=== PATIENT | female | born 1980 | race African-American/Black ===

== ENCOUNTER 2021-08-30 08:11 | Emergency (ER) | payer OTHER ==
[2021-08-30] MEDS ORDERED: dexAMETHasone 10 MG/ML VIAL ONE (08:56)
[2021-08-30] MEDS ORDERED: KETOROLAC 30 MG/ML INJ ONE (08:57)
--- NOTE | 2021-08-30 09:18 | EDPHYS ---
Physician Documentation [facility] Name: Mahsa Montgomery Age: 41 yrs Sex: Female : 1980 Arrival Date: 08/30/2021 Time: 08:15 Bed Waiting Private MD: ED Physician Guy Montoya HPI: 08/30 09:01 This 41 yrs old Black Female presents to ER via Ambulatory with complaints of Ear Pain, jmm Neck Pain, >24Hrs Old, Toothache. 09:01 The patient presents with pain. Onset: The symptoms/episode began/occurred gradually. jmm Modifying factors: The symptoms are alleviated by nothing, the symptoms are aggravated by nothing. Associated signs and symptoms: Pertinent negatives: fever. PRODUCTION EDITOR: 08:29 LMP 07/31/2021 [facility] Historical: - Allergies: 08:29 Tramadol HCl; [facility] 08:29 Daypro; [facility] - Home Meds: 08:29 None [Active]; [facility] - PMHx: 08:29 None; [facility] - PSHx: 08:29 section; Tonsillectomy; Adenoid excision; [facility] - Immunization history:: Client reports having NOT received the Covid vaccine. Flu vaccine is not up to date. - Social history:: Smoking status: Patient denies any tobacco usage or history of. ROS: 09:15 Constitutional: Negative for fever, chills, and weight loss, Cardiovascular: Negative jmm for chest pain, palpitations, and edema, Respiratory: Negative for shortness of breath, cough, wheezing, and pleuritic chest pain. 09:15 ENT: Positive for sore throat. 09:15 All other systems are negative. Exam: 09:15 Constitutional: This is a well developed, well nourished patient who is awake, alert, jmm and in no acute distress. Head/Face: atraumatic. Eyes: EOMI, no conjunctival erythema appreciated 09:15 Neck: Trachea midline, Supple Chest/axilla: Normal chest wall appearance and motion. Cardiovascular: Regular rate and rhythm. No edema appreciated Respiratory: Normal respirations, no respiratory distress appreciated Abdomen/GI: Non distended Back: Normal ROM 09:15 Skin: General appearance color normal MS/ Extremity: Moves all extremities, no obvious deformities appreciated, no edema noted to the lower extremities Neuro: Awake and alert Psych: Behavior is normal, Mood is normal, Patient is cooperative and pleasant 09:15 ENT: Posterior pharynx: erythema, that is mild. 09:15 ENT: TM's: are normal. Vital Signs: 08:22 BP 156 / 80; Pulse 62; Resp 18; Temp 98.1; Pulse Ox 100% ; Weight 127.01 kg; Height 5 [facility] ft. 7 in. (170.18 cm); Pain 8/10; 10:26 BP 140 / 78; Pulse 66; Resp 17; Temp 98.6; Pulse Ox 100% ; Pain 4/10; jh6 08:22 Body Mass Index 43.85 (127.01 kg, 170.18 cm) [facility] MDM: 09:[address] [facility] 09:17 Data reviewed: vital signs, nurses notes. Counseling: I had a detailed discussion with barbra the patient and/or guardian regarding: the historical points, exam findings, and any diagnostic results supporting the discharge/admit diagnosis, the need for outpatient follow up, to return to the emergency department if symptoms worsen or persist or if there are any questions or concerns that arise at home. ED course: Patint advised to follow up with pcp and otherwise given strict return precautions. patient understood and agrees with the plan of care. . 08/30 08:52 Order name: Strep; Complete Time: 09:18 [facility] 08/30 09:20 Order name: Throat Culture EDMS Administered Medications: 08:55 Drug: Decadron (dexamethasone) 10 mg Route: IM; Site: right deltoid; [facility] 10:25 Follow up: Response: No adverse reaction [facility] 08:55 Drug: Ketorolac 30 mg Route: IM; Site: left deltoid; [facility] 10:25 Follow up: Response: No adverse reaction [facility] Disposition: 08/31 09:20 Co-signature as Attending Physician, Guy LINDQUIST was immediately available on-site ms3 in the Emergency Department for consultation in the care of the patient.. Disposition Summary: 08/30/21 09:17 Discharge Ordered Location: Home [facility] Condition: Stable [facility] Diagnosis - Acute pharyngitis, unspecified jmm Followup: [facility] - With: Private Physician - When: 2 - 3 days - Reason: Recheck today's complaints, Continuance of care, Re-evaluation by your physician Discharge Instructions: - Discharge Summary Sheet [facility] - Pharyngitis [facility] Forms: - Medication Reconciliation Form stacy - Thank You Letter barbra - Antibiotic Education stacy - Prescription Opioid Use stacy - Work release form [id number] Prescriptions: - Clindamycin HCl 300 mg Oral Capsule - take 1 capsule by ORAL route every 6 hours for 10 days; 40 capsule; Refills: 0, [facility] Product Selection Permitted - orphenadrine citrate 100 mg Oral Tablet Sustained Release - take 1 tablet by ORAL route 2 times per day As needed; 20 tablet; Refills: 0, [facility] Product Selection Permitted Signatures: Dispatcher [employer] EDMS Reji Hernández PA PA jmm Sims, Marcus, DO DO ms3 Bing Mendoza RN RN jh6
--- NOTE | 2021-08-30 09:18 | ER ---
Nurse's Notes [facility] Name: Mahsa Montgomery Age: 41 yrs Sex: Female : 1980 Arrival Date: 08/30/2021 Time: 08:15 Bed Waiting Private MD: Diagnosis: Acute pharyngitis, unspecified Presentation: 08/30 08:22 Chief complaint: Patient states: Pt reports left ear pain, jaw pain, and left anterior 6 neck/throat pain. Pt states ear and jaw pain have resolved but left neck remains unchanged. Reports difficulty turning head from [id number]. Denies cough/fever. Coronavirus screen: Vaccine status: Patient reports being unvaccinated. Client denies travel out of the [place] in the last 14 days. Ebola Screen: Patient negative for fever greater than or equal to 101.5 degrees Fahrenheit, and additional compatible Ebola Virus Disease symptoms Patient denies exposure to infectious person. Patient denies travel to an Ebola-affected area in the 21 days before illness onset. Initial Sepsis Screen: Does the patient meet any 2 criteria? No. Patient's initial sepsis screen is negative. Does the patient have a suspected source of infection? No. Patient's initial sepsis screen is negative. Risk Assessment: Do you want to hurt yourself or someone else? Patient reports no desire to harm self or others. Onset of symptoms was August 23, 2021. 08:22 Method Of Arrival: Ambulatory [facility] 08:22 Acuity: JULIAN 4 [facility] 08:34 Note Reji RAMIREZ in triage to assess pt. [facility] Triage Assessment: 08:29 General: Appears in no apparent distress. Behavior is calm, cooperative. Pain: [facility] Complains of pain in face, left ear and neck Pain does not radiate. Pain Quality of pain is described as sharp, Pain began 1 week Aggravated by increased activity. EENT: Reports pain in chin and left jaw when swallowing. TRAVEL RN OR: 08:29 LMP 07/31/2021 [facility] Historical: - Allergies: 08:29 Tramadol HCl; [facility] 08:29 Daypro; [facility] - Home Meds: 08:29 None [Active]; [facility] - PMHx: 08:29 None; [facility] - PSHx: 08:29 section; Tonsillectomy; Adenoid excision; jh6 - Immunization history:: Client reports having NOT received the Covid vaccine. Flu vaccine is not up to date. - Social history:: Smoking status: Patient denies any tobacco usage or history of. Vital Signs: 08:22 BP 156 / 80; Pulse 62; Resp 18; Temp 98.1; Pulse Ox 100% ; Weight 127.01 kg; Height 5 6 ft. 7 in. (170.18 cm); Pain 8/10; 10:26 BP 140 / 78; Pulse 66; Resp 17; Temp 98.6; Pulse Ox 100% ; Pain 4/10; jh6 08:22 Body Mass Index 43.85 (127.01 kg, 170.18 cm) [facility] ED Course: 08:15 Patient arrived in ED. as 08:16 Reji Hernández PA is PHCP. [facility] 08:16 Guy Montoya DO is Attending Physician. [facility] 08:29 Triage completed. [facility] 08:33 Arm band placed on right wrist. [facility] 08:39 Labs ordered per protocol. Drawn by ED staff. Strep sent in triage. [facility] 08:58 Strep Sent. [facility] 10:26 Bing Mendoza, KENNA is Primary Nurse. [facility] Administered Medications: 08:55 Drug: Decadron (dexamethasone) 10 mg Route: IM; Site: right deltoid; [facility] 10:25 Follow up: Response: No adverse reaction [facility] 08:55 Drug: Ketorolac 30 mg Route: IM; Site: left deltoid; [facility] 10:25 Follow up: Response: No adverse reaction [facility] Outcome: 09:17 Discharge ordered by MD. [facility] 10:25 Discharged to home ambulatory. [facility] 10:25 Condition: good 10:25 Discharge instructions given to patient, Instructed on discharge instructions, Demonstrated understanding of instructions, follow-up care, medications, Prescriptions given X 2. 10:27 Patient left the ED. [facility] Signatures: Reji Hernández PA PA jmm Martinez, Amelia as Hastedt, Jennifer, RN RN [facility]
[2021-08-30 10:44] VITALS: O2SAT 100
[2021-08-30 10:46] VITALS: BP 140/78; TEMP 98.6
--- OUTSIDE RECORDS SUMMARY | 2021-08-31 15:23 | XMS REPORT | Continuity of Care Document ---
:1980 Author Organization [facility] t Address [address] [place] [address] Care Team Providers Name Role Phone Unavailable Unavailable Unavailable Problems This patient has no known problems. Allergies, Adverse Reactions, Alerts This patient has no known allergies or adverse reactions. Medications This patient has no known medications. Procedures This patient has no known procedures. Results Test Description Test Time Test Comments Results Result Comments Source NATALYA NON-REFLEX TO TITER 2021-07-29 10:54:34 Test Item Value Reference Range Interpretation Comme nts ANTI-NUCLEAR ANTIBODIES (test NEGATIVE NEGATIVE Methodology is Indirect code = 3506) Immunofluoresce nt Assay (IFA) with a titering s ystem using [id number] cells (Hep2 sidney ls transfected with SS-A/Ro). A pattern reported as SS-A is cons idered confirmatory in the appropriate clinical contex t. HEMOGLOBIN [id number] 08:51:25 Test Item Value Reference Range Interpretation Comments HEMOGLOBIN A1c (test code = 80162) 5.7 % 4.2-5.6 H COMPREHENSIVE METABOLIC [id number] 05:18:29 Test Item Value Reference Range Interpretation Comments GLUCOSE (test code = 130 MG/DL 70-99 H 2216) BUN (test code = 9 MG/DL -2207) CREATININE (test 0.99 MG/DL 0.60-1.30 code = 2214) eGFR (2020 CKD-EPI) 74 ML/MIN/1.73 >60 (test code = 84013) CALC BUN/CREAT (test 9 RATIO - code = 2235) SODIUM (test code = 141 MEQ/L 966-120 8947) POTASSIUM (test code 3.7 MEQ/L 3.5-5.4 = 8) CHLORIDE (test code 106 MEQ/L 95-107 = 2215) CARBON DIOXIDE (test 25 MEQ/L 19-31 code = 2206) CALCIUM (test code = 9.0 MG/DL 8.5-10.5 2208) PROTEIN, TOTAL (test 8.2 G/DL 6.1-8.3 code = 222) ALBUMIN (test code = 4.3 G/DL 3.5-5.2 2200) CALC GLOBULIN (test 3.9 G/DL 1.9-3.7 H code = 2240) CALC A/G RATIO (test 1.1 RATIO 1.0-2.6 code = 2234) BILIRUBIN, TOTAL 0.2 MG/DL See_Comment [Automated message] (test code = 220) The syste m which generated this result transmit matthew reference range : <=1.2. The refe rence range was not u sed to interpret th is result as normal/abnormal . ALKALINE PHOSPHATASE 64 U/L 40-112 (test code = 2203) AST (test code = 32 U/L 9-40 2217) ALT (test code = 23 U/L 5-40 2218) SEDIMENTATION [id number] 05:13:49 Test Item Value Reference Range Interpretation Comments SEDIMENTATION RATE 26 MM/HOUR 0-20 H UN LESS (test code = 1017) OTHERWISE INDICATED, ALL TESTING PER [facility], [place]. [address] [place] [address] LABORATORY DIRE CTOR: KD JULES M.D. CLIA NUMBER [id number] CAP ACCREDITATION N O. [id number]
== END 2021-08-30 10:27 | disposition home or self-care (01) ==
LOC: ER 08:11
DX: J02.9 Acute pharyngitis, unspecified (principal); Z88.5 Allergy status to narcotic agent; Z88.8 Allergy status to other drugs, medicaments and biological substances
CPT/HCPCS: 87070; 87081; J1100